=== PATIENT | female | born 1985 | race Two or more races ===

== ENCOUNTER → 2025-07-27 | Outpatient (CLI) | payer MEDICAID, SELFPAY ==
--- NOTE | 2025-07-27 11:27 | XR_ITS ---
Examination: Pelvic ultrasound, transabdominal, complete Technique: Transabdominal ultrasound of the pelvis performed using grayscale imaging Date and time of exam: July 27, 2025 1142 hours INDICATIONS: Amenorrhea one year FINDINGS: Uterus 6.5 cm endometrial stripe 0.2 cm No uterine mass or intrauterine gestation Right ovary 2.3 cm arterial flow Left ovary obscured by bowel gas IMPRESSION: Limited study No uterine mass or intrauterine gestation
--- NOTE | 2025-07-27 11:30 | XR_ITS ---
Examination: Transvaginal ultrasound of the pelvis, complete Technique: Transvaginal sonographic images pelvis performed using green scale imaging Exam date and time: July 27, 2025 1153 hours INDICATIONS: Amenorrhea one year FINDINGS: Uterus 6.5 cm endometrial stripe 0.2 cm No uterine mass Right ovary 2.3 cm arterial flow Left ovary obscured by bowel gas IMPRESSION: Negative for uterine mass, negative for intrauterine gestation.
== END | disposition home or self-care (01) ==
PROVIDERS: PCP Physician Assistant; Referring Provider Physician Assistant; Visit Provider Physician Assistant
DX: N91.2 Amenorrhea, unspecified (principal)
CPT/HCPCS: 76830; 76856